=== PATIENT | male | born 1980 | race Caucasian/White ===

== ENCOUNTER 2018-09-14 10:42 | Emergency (ER) | payer OTHER ==
[2018-09-14] MEDS: Acetaminophen/HYDROcodone 325-10 MG Tab ONE (11:20)
[2018-09-14] MEDS: Morphine 2 MG/ML Syringe ONE ×2 (12:05→12:30)
--- NOTE | 2018-09-14 12:23 | CR ---
DATE OF SERVICE: 09/14/18 CLINICAL DATA: Avulsion. LEFT THUMB: The patient is status post left thumb amputation with amputation through the base of the distal phalanx. There is a small bony avulsion from the base of the proximal phalanx. No other abnormalities. [id number] [facility]
[2018-09-14 13:08] VITALS: BP 135/81
[2018-09-14] MEDS: HYDROmorphone 2 MG/ML Syringe ONE ×2 (13:10→13:55)
[2018-09-14] MEDS: Sodium Chloride 0.9% 1,000 ML IV SCH (13:55)
--- NOTE | 2018-09-14 16:31 | EDM.PDOC ---
ED HPI GENERAL MEDICAL PROBLEM - General Chief Complaint: General Stated Complaint: INJURY TO LEFT HAND Time Seen by Provider: 09/14/18 11:50 - History of Present Illness INITIAL COMMENTS - FREE TEXT/NARRATIVE: This is a 38yo M who came via private vehicle to the Emergency department for an injury to the left Thumb. Patient is left handed and was drilling surveying holes and his glove was caught in the drill and took his left thumb. He was able to bring in the glove and detached thumb. Patient bleeding was controlled on arrival. Patient denies any other health history or concerns. Onset: Sudden Location: Reports: Upper Extremity, Left Severity: Severe Associated Symptoms: Reports: No Other Symptoms - Related Data Allergies Allergy/AdvReac Type Severity Reaction Status Date / Time No Known Allergies Allergy Verified 09/14/18 11:04 Home Meds: Home Meds NK [No Known Home Meds] 09/14/18 [History] Past Medical History Musculoskeletal History: Reports: Other (See Below) Other Musculoskeletal History: broken thompson. 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 ED ROS GENERAL - Review of Systems Review Of Systems: ROS reveals no pertinent complaints other than HPI. ED EXAM, GENERAL - Physical Exam Exam: See Below Exam Limited By: No Limitations General Appearance: Alert, WD/WN, Mild Distress Eye Exam: Bilateral Eye: EOMI, PERRL Nose: Normal Inspection Throat/Mouth: Normal Inspection Head: Atraumatic, Normocephalic Neck: Normal Inspection Respiratory/Chest: No Respiratory Distress, Lungs Clear, Normal Breath Sounds Cardiovascular: Normal Peripheral Pulses, Regular Rate, Rhythm Peripheral Pulses: 2+: Dorsalis Pedis (L), Dorsalis Pedis (R) Extremities: Other (left distal thumb avulsion from the IP joint distally with the distal thumb connected to the extensor pollis longus tendon which appears avulsed at the origin) Neurological: Alert, Oriented Skin Exam: Warm, Dry, Intact, Wound/Incision Course - Vital Signs Last Recorded V/S: Last Vital Signs Temp 36.4 C 09/14/18 11:46 Pulse 68 09/14/18 12:55 Resp 16 09/14/18 11:46 BP 135/81 09/14/18 12:55 Pulse Ox 98 09/14/18 12:30 - Orders/Labs/Meds Meds: Medications Discontinued Medications Generic Name Dose Route Start Last Admin Trade Name Leisa PRN Reason Stop Dose Admin Hydrocodone Bitart/Acetaminophen Confirm 09/14/18 11:18 09/14/18 11:20 [place] 325-10 Mg Administered 09/14/18 11:19 1 tab Dose Administration 1 tab .ROUTE .STK-MED ONE Hydromorphone HCl Confirm 09/14/18 13:15 09/14/18 13:55 Dilaudid Administered 09/14/18 13:16 2 mg Dose Administration 2 mg .ROUTE .STK-MED ONE Hydromorphone HCl Confirm 09/14/18 13:57 09/14/18 13:10 Dilaudid Administered 09/14/18 13:58 2 mg Dose Administration 2 mg .ROUTE .STK-MED ONE Morphine Sulfate Confirm 09/14/18 12:11 09/14/18 12:05 Morphine Administered 09/14/18 12:12 2 mg Dose Administration 2 mg .ROUTE .STK-MED ONE Morphine Sulfate Confirm 09/14/18 12:34 09/14/18 12:30 Morphine Administered 09/14/18 12:35 2 mg Dose Administration 2 mg .ROUTE .STK-MED ONE - Re-Assessments/Exams Free Text/Narrative Re-Assessment/Exam: Left thumb examined and wrapped multiple times due to bleeding. X-ray done of digit and avulsion. 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, initial encounter - Discharge Information Referrals: PCP,Unknown [Primary Care Provider] - Forms: ED Department Discharge - Problem List & Annotations (1) Amputation, thumb, traumatic SNOMED Code(s): 544149519 Code(s): S68.019A - COMPLETE TRAUMATIC MCP AMPUTATION OF THMB, INIT Status : Acute Priority: High Current Visit: Yes Qualifiers: Encounter type: initial encounter Laterality: left Qualified Code(s): S68.012A - Complete traumatic metacarpophalangeal amputation of left thumb, initial encounter - Problem List Review Problem List Initiated/Reviewed/Updated: Yes - Assessment/Plan Plan: Consulted Dr. [place]. Discussed plan of care and management. Avulsed thumb placed in moist 4x4 and in bag and then in another ice fillled bag. X-rays ordered. Consulted [facility] and they stated they would not proceed with Revascularization. Consulted [facility] and ER attending Dr. Lau discussed with their trauma and plastics team and are willing to accept and possibly replant/ revascularize thumb. [facility] notified for transport and [facility] arrived for transfer. Patient transferred to care of [facility] team.
== END 2018-09-14 13:57 ==
LOC: LB.ED 10:42
DX: S68.012A Complete traumatic metacarpophalangeal amputation of left thumb, initial encounter (principal); X58.XXXA Exposure to other specified factors, initial encounter
CPT/HCPCS: 73140-FA; 99284-25; A0425; A0429; A9270-GY; J1170; J2270; J7030